=== PATIENT | female | born 1980 | race Hispanic/Latino ===

== ENCOUNTER 2019-09-22 15:00 | Emergency (ER) | payer OTHER ==
[~2019-09-22] VITALS: Ht 162.6 cm; Wt 59.0 kg
--- OUTSIDE RECORDS SUMMARY | 2019-09-22 15:03 | XMS REPORT | Summary of Care ---
Author Author Tete Nolan Organization Unknown Address [facility] Phone Unavailable Care Team Providers Care Hot Molder Name Role Phone Tete Nolan Unavailable Unavailable STUART JACK M.D. Unavailable Unavailable Unavailable Unavailable Functional Status Name Dates Details Functional status health issues are not documented Status: Name Dates Details Cognitive status health issues are not documented Status: Problems Name Dates Details Kiersten's sprain (845.11, S93.629A) Status: Active Medications Name Dates Details Meloxicam 15 MG Oral Tablet TAKE 1 TABLET DAILY. Quantity: 30 MARCIE Staples, STUART * Start : 20-Aug-2017 Active Allergies and Adverse Reactions Name Dates Details Allergy history not documented Status: Procedures Procedure Dates Details Procedures not documented Immunization Name Dates Details Immunizations not documented Social History Name Dates Details Unknown if ever smoked Vital Signs Date Test Result Details No Known Vitals to report Results Date Description Value Details Results not documented Plan of Care Name Dates Details Planned Observations Planned Goals not documented Instructions Name Dates Details Instructions not documented Encounters Appointment; STUART JACK M.D. Encounter Diagnosis: Problem not documented On: 18-Jul-2017 11:15 Appointment; STUART JACK M.D. Encounter Diagnosis: Problem not documented On: 20-Aug-2017 9:30
--- OUTSIDE RECORDS SUMMARY | 2019-09-22 15:03 | XMS REPORT ---
[facility] Address Unknown Phone Unavailable Care Team Providers Care Welder [employer] Name Role Phone Unavailable Unavailable Payers Payer Name Policy Type Policy Number Effective Date Expiration Date Problems This patient has no known problems. Allergies, Adverse Reactions, Alerts Allergy Name Allergy Type Status Severity Reaction(s) Onset Date Inactive Date Treating Clinician Comments No Known Allergies DA Active U 2019-06-07 00:00:00 No Known Drug Intolerances DA Active U 2010-02-18 00:00:00 Medications This patient has no known medications. Results Test Description Test Time Test Comments Text Results Atomic Results Result Comments - XR KNEE 3 V LT 2019-06-07 12:06:00 Name: WENBELKIS [facility] : 1980 Age/S:38 /F [address] [facility] Unit#:[id number] Loc: [place] [address] Phys: Angy Tamayo ACADEMIC SPECIALIST Dis Date: PHONE #: [phone] Status: REG ER FAX #: [phone] Exam Date: 06/07/2019 Reason: FOOSH and fell left knee EXAMS: CPT CODE: [id number] XR KNEE 3 V LT [id number] CLINICAL HISTORY: FOOSH and fell left knee TECHNIQUE: 3 views of the left knee COMPARISON: None FINDINGS: No acute fracture. Bony trabecular pattern is unremarkable. No cortical destruction or periosteal reaction. No joint effusion is present. No stranding in Hoffa's fat pad. Regional soft tissues are unremarkable. IMPRESSION: Negative examination of the left knee Location: [facility] at 1206 Reported and signed by: Adelfo Zhu MD CC: Technologist: ENRIQUE BARBER RT(R),CT Trnscrpt Data: 06/07/2019 (1206) [email or web address] Orig Print D/T: S: 06/07/2019 (8995) PAGE 1 Signed Report - XR WRIST 3 + V BI 2019-06-07 12:03:00 Name: BELKIS WEN [facility] : 1980 Age/S:38 /F [address] [facility] Unit#:[id number] Loc: [place] [address] Phys: Angy Tamayo NP Dis Date: PHONE #: [phone] Status: REG ER FAX #: [phone] Exam Date: 06/07/2019 Reason: FOOSH and fell left knee EXAMS: CPT CODE: [id number] XR WRIST 3 + [place] [address] REASON FOR EXAM: FOOSH and fell left knee EXAM ORDER DATE: 06/07/2019 11:22 AM Ordering M.D.: Angy Tamayo NP PROCEDURE: - XR WRIST 3 + V BI Comparison:None FINDINGS: No evidence of fracture. The joint spaces are maintained and the arcs of [place] are intact. The carpal and metacarpal bones are unremarkable. There is normal alignment of the radiocarpal joint space. The visualized bones of the hand are within normal limits. Soft tissues are within normal limits. IMPRESSION: Normal radiographs of the bilateral wrists. Location: [facility] at 1203 Reported and signed by: Adelfo Zhu MD CC: Technologist: ENRIQUE BARBER RT(R),CT Trnscrpt Data: 06/07/2019 (1203) [email or web address] Orig Print D/T: S: 06/07/2019 (3495) PAGE 1 Signed Report
[2019-09-22] MEDS ORDERED: SODIUM CHLORIDE 0.9% 1000ML 1,000 ML IV STA (15:19)
[2019-09-22 16:13] LABS: BASOPHILS % 0.4 % (0.0-1.0); EOSINOPHILS % 0.5 % (0.0-6.0); HEMATOCRIT 40.9 % (34.2-44.1); HEMOGLOBIN 14.1 g/dL (12.0-16.0); LYMPHOCYTES # (AUTO) 1.3 (1.0-3.2); LYMPHOCYTES % 16.3 % (18.0-39.1); MEAN CORPUSCULAR HEMOGLOBIN 30.5 pg (28-32); MEAN CORPUSCULAR HGB CONC 34.5 g/dL (31-35); MEAN CORPUSCULAR VOLUME 88.5 fL (81-99); MONOCYTES # (AUTO) 0.5 (0.2-0.8); MONOCYTES % 6.6 % (4.4-11.3); NEUTROPHILS # (AUTO) 6.2 (2.1-6.9); NEUTROPHILS % 75.8 % (38.7-80.0); PLATELET COUNT 255 x10e3/uL (140-360); RED BLOOD COUNT 4.62 x10e6/uL (3.6-5.1); RED CELL DISTRIBUTION WIDTH 12.5 % (11.7-14.4)
[2019-09-22 16:18] LABS: CLARITY,URINE CLEAR (CLEAR); COLOR,URINE YELLOW (YELLOW)
[2019-09-22 16:19] LABS: KETONES,URINE NEGATIVE (NEGATIVE); LEUKOCYTE ESTERASE ,URINE NEGATIVE (NEGATIVE); NITRITE,URINE NEGATIVE (NEGATIVE); PROTEIN,URINE DIPSTICK NEGATIVE (NEGATIVE); URINE UROBILINOGEN 0.2 mg/dL (0.2 - 1)
[2019-09-22 16:34] LABS: ALANINE AMINOTRANSFERASE 8 IU/L (0-55); ALBUMIN/GLOBULIN RATIO 1.3 (0.8-2.0); ALKALINE PHOSPHATASE 52 IU/L (40-150); BLOOD UREA NITROGEN 11 mg/dL (7-26); BUN/CREATININE RATIO 16 (6-25); CALCIUM 9.3 mg/dL (8.4-10.2); CARBON DIOXIDE 27 mmol/L (22-29); CHLORIDE 104 mmol/L (98-107); EST GLOMERULAR FILTRATION RATE > 60 ML/MIN (60-); GLUCOSE 96 mg/dL (74-118); LIPASE 32 U/L (8-78); SODIUM 138 mmol/L (136-145)
[2019-09-22 16:41] LABS: INFLUENZAE A&B ANTIGEN (RAPID) NEGATIVE (NEGATIVE)
[2019-09-22 16:44] LABS: STREPTOCOCCUS GRP A ANTIGEN NEGATIVE (NEGATIVE)
[2019-09-22 16:56] LABS: BACTERIA,URINE MODERATE /HPF; BILIRUBIN,URINE NEGATIVE (NEGATIVE); EPITHELIAL CELLS,URINE MODERATE /LPF
--- NOTE | 2019-09-22 18:24 | NUR ---
Pt recieved Ct scans.
--- NOTE | 2019-09-22 18:54 | Diagnostic Imaging Report ---
History: Headache Comparison studies: None Technique: Axial images were obtained from the skull base to the vertex. Coronal and sagittal reconstructions obtained from the axial data. Dose modulation, iterative reconstruction, and/or weight based adjustment of the mA/kV was utilized to reduce the radiation dose to as low as reasonably achievable. Intravenous contrast: None Findings: Scalp/skull: No abnormalities. No fractures, blastic or lytic lesions. Extra-axial spaces: No masses. No fluid collections. Brain sulci: Appropriate for age. Ventricles: Normal in size and configuration. No hydrocephalus. Parenchyma: No abnormal densities. No masses, hemorrhage, acute or chronic cortical vascular insults. Sellar/suprasellar region: No abnormalities Craniocervical junction: Patent foramen magnum. No Chiari one malformation. Incidental findings: None. IMPRESSION: No abnormalities. Signed by: Dr. Memo Patel M.D. on 09/22/2019 6:51 PM
--- NOTE | 2019-09-22 18:56 | Diagnostic Imaging Report ---
EXAMINATION: CT of the chest, abdomen and pelvis with contrast. TECHNIQUE: Helical CT images of the chest, abdomen and pelvis were performed from the lung apices to the lesser trochanters after the intravenous administration of 100 cc of Isovue 300 and the oral administration of none. Coronal and sagittal reformatted images were obtained. Dose modulation, iterative reconstruction, and/or weight based adjustment of the mA/kV was utilized to reduce the radiation dose to as low as reasonably achievable. COMPARISON: None. CLINICAL HISTORY:Nausea vomiting, pain DISCUSSION: CHEST: LINES/TUBES: None. LUNGS AND AIRWAYS: The lungs and airways are normal with no focal abnormality demonstrated. PLEURA: The pleural spaces are clear. HEART AND MEDIASTINUM: The thyroid gland is normal. The heart and pericardium are within normal limits. LYMPH NODES: No significant mediastinal, hilar or axillary lymphadenopathy is seen. BONES AND SOFT TISSUES: No bony destructive lesions. No soft tissue abnormalities. ABDOMEN/PELVIS: HEPATOBILIARY:No focal hepatic lesions. No biliary ductal dilation. The gallbladder is normal. SPLEEN: No splenomegaly. PANCREAS: No focal masses or ductal dilatation. ADRENALS: No adrenal nodules. KIDNEYS/URETERS: No hydronephrosis, stones, or solid mass lesions. PELVIC ORGANS/BLADDER: 4 cm simple appearing right adnexal cyst PERITONEUM/RETROPERITONEUM: No free air or fluid. LYMPH NODES: No intra-abdominal,retroperitoneal, pelvic or inguinal lymphadenopathy. VESSELS: The celiac trunk,superior and inferior mesenteric and bilateral renal arteries are patent The portal, superior mesenteric and splenic veins are patent. GI TRACT: No distention or wall thickening. Appendix is normal BONES AND SOFT TISSUES: No bony destructive lesions. No soft tissue abnormalities. IMPRESSION: No acute CT finding. 4 cm simple appearing right adnexal cyst Signed by: Dr. Zoltan Graham M.D. on 09/22/2019 6:53 PM
[2019-09-22] MEDS ORDERED: ACETAMINOPHEN 325 MG TAB PO ONE (19:15)
[2019-09-22] MEDS ORDERED: ACETAMINOPHEN 325 MG TAB ONE (19:40)
[2019-09-22] MEDS ORDERED: SODIUM CHLORIDE 0.9% 50ML 50 ML ONE (21:19)
[2019-09-22] MEDS ORDERED: IOPAMIDOL 370 MG/ML 200 ML INFUS..BTL INJ ONE (21:19)
== END 2019-09-22 20:08 | disposition home or self-care (01) ==
LOC: ER 15:00
DX: R11.2 Nausea with vomiting, unspecified (principal); G44.89 Other headache syndrome; B34.9 Viral infection, unspecified; N30.90 Cystitis, unspecified without hematuria
CPT/HCPCS: 36415; 70450; 71260; 74177; 80053; 81001; 81025; 83518; 83690; 83880; 85025; 87070; 87400; 99284; J7030; Q9967